=== PATIENT | female | born 1975 | race Two or more races ===

== ENCOUNTER 2021-03-26 14:52 | Outpatient (REF) | payer MEDICAID, SELFPAY ==
--- NOTE | 2021-03-26 | PFT_ITS ---
Forced vital capacity and FEV1 are both moderately decreased. [id number] and MVV are normal. Post bronchodilator therapy, there is no significant change. Total lung capacity and residual volume are moderately decreased. Diffusion capacity is only slightly decreased. CONCLUSION: Restrictive pulmonary disorder, moderately severe. No obstructive airway disorder. No response to bronchodilator therapy. MD TRISHA Faust/DAREN / [id number]
== END 2021-03-26 14:53 | disposition home or self-care (01) ==
LOC: HO.RESP 14:52
PROVIDERS: PCP Internal Medicine; Visit Provider Internal Medicine
DX: R06.00 Dyspnea, unspecified (principal)
CPT/HCPCS: 94060; 94727; 94729

== ENCOUNTER 2021-04-08 13:55 | Outpatient (REF) | payer MEDICAID, SELFPAY ==
[2021-04-08 15:10] LABS: MANUAL DIFF FLAG NO
[2021-04-08 15:18] LABS: Basophils Percent Auto 0.4 % (0-2); Eosinophils Absolute Auto 0.2 X10*3/uL (0.0-0.4); Eosinophils Percent Auto 1.6 % (0-4); Hematocrit 47.3 % (37.0-47.0); Hemoglobin 15.1 g/dl (12.0-16.0); Imm Gran Abs Auto 0.04 X10*3/uL (0.00-0.03); Imm Gran Pct Auto 0.4 % (0.0-0.4); Lymphocytes Absolute Auto 2.1 X10*3/uL (1.2-4.9); Lymphocytes Percent Auto 21.2 % (20-40); Mean Corpuscular HGB Conc 31.9 g/dl (31.0-35.0); Mean Corpuscular Hemoglobin 27.3 pg (27.0-33.0); Mean Corpuscular Volume 85.5 fL (80.0-98.0); Mean Platelet Volume 10.6 fL (9.4-12.3); Monocytes Absolute Auto 0.7 X10*3/uL (0.1-1.2); Monocytes Percent Auto 6.9 % (2-11); Neutrophils Absolute Auto 6.7 x10*3/uL (2.0-8.3); Neutrophils Percent Auto 69.5 % (45-73); Platelet Count 231 X10*3/uL (160-400); Red Blood Count 5.53 X10*6/uL (4.20-5.50); Red Cell Distribution Width 12.1 % (11.0-16.0); White Blood Count 9.7 X10*3/uL (4.8-10.8)
[2021-04-08 15:43] LABS: Anion Gap 11 (12-20); Blood Urea Nitrogen 10 mg/dL (9-16); Carbon Dioxide 25 mmol/L (22-29); Chloride 102 mmol/L (96-108); Estimated Glomerular Filt Rate > 60; Glucose Random 228 mg/dL (60-115); Potassium 3.8 mmol/L (3.3-5.1); Sodium 134 mmol/L (135-145)
[2021-04-08 15:59] LABS: D Dimer High Sensitivity < 150 NG/ML
[2021-04-08 16:04] LABS: Erythrocyte Sedimentation Rate 5 MM/HR (0-20)
[2021-04-10 13:36] LABS: IgA 504 mg/dL (47-310); IgG 1192 mg/dL (600-1640); IgM 163 mg/dL (50-300)
== END 2021-04-08 13:56 | disposition home or self-care (01) ==
LOC: HO.LAB 13:55
PROVIDERS: PCP Internal Medicine; Visit Provider Hospitalist
DX: U09.9 Post COVID-19 condition, unspecified (principal); R09.02 Hypoxemia; R06.00 Dyspnea, unspecified; J98.4 Other disorders of lung
CPT/HCPCS: 36415; 80048; 82784; 85025; 85379; 85652; 99202

== ENCOUNTER → 2021-05-30 14:33 | Outpatient (BNVA) | payer MEDICAID, SELFPAY | PROVIDERS: PCP Internal Medicine; Visit Provider Hospitalist | DX: U09.9 Post COVID-19 condition, unspecified (principal); R06.00 Dyspnea, unspecified; R09.02 Hypoxemia; J98.4 Other disorders of lung | CPT/HCPCS: 99212 ==

== ENCOUNTER 2021-06-12 15:12 | Outpatient (REF) | payer MEDICAID, SELFPAY ==
--- NOTE | ~2021-06-12 | CT_ITS ---
EXAMINATION: CT CHEST WITHOUT CONTRAST CLINICAL INFORMATION: Lung disorders. COMPARISON: None TECHNIQUE: Multidetector volumetric CT imaging of the chest was done. Axial MIP volume rendering provided. Sagittal and coronal reformatted images were obtained. This CT examination was performed using dose optimization techniques as appropriate, variously including the following: *Automated exposure control *Adjustment of mA and/or kV according to patient size (this includes techniques or standardized protocols for targeted exams where dose is matched to indication/reason for exam; i.e. extremities or head) *Use of iterative reconstruction technique DLP: 263 mGy-cm FINDINGS: HAND PAINT MIXER: Unremarkable. LUNGS: The lungs are well inflated with plate-like atelectasis in the lingula and right middle lobe. There are no pulmonary nodules, consolidation, mass or ground-glass density. No abnormal interstitial pattern seen. MEDIASTINUM: The thyroid lobes are symmetric and normal. The central trachea and the bronchi are widely patent. No abnormal-sized mediastinal or hilar lymph nodes seen. There is trace coronary artery calcification. No pericardial effusion seen. The heart size and the great vessels are normal caliber. PLEURA: There is no pleural effusion. No pleural mass or thickening. AXILLA: No lymphadenopathy. UPPER ABDOMEN: Visualized liver, spleen and pancreas appear unremarkable. OSSEOUS STRUCTURES: There is no lytic or sclerotic process seen. CT/CT chest wo con IMPRESSION: Lingular atelectasis in the lingula and right middle lobe. No pulmonary nodules, mass or consolidation. No abnormal lymphadenopathy. Fleischner guidelines were followed.
== END 2021-06-12 15:13 | disposition home or self-care (01) ==
LOC: HO.CT 15:12
PROVIDERS: PCP Internal Medicine; Visit Provider Hospitalist
DX: R06.00 Dyspnea, unspecified (principal); J98.4 Other disorders of lung
CPT/HCPCS: 71250

== ENCOUNTER 2021-06-19 14:00 | Outpatient (REF) | payer MEDICAID, SELFPAY ==
--- NOTE | ~2021-06-19 | US_ITS ---
EXAMINATION: US PELVIS CLINICAL INFORMATION: Pelvic and perineal pain. COMPARISON: None TECHNIQUE: Ultrasound of the pelvis is performed using both transabdominal and transvaginal transducers along with Doppler. Transvaginal imaging is performed due to inadequate visualization transabdominally. FINDINGS: The uterus is surgically absent. The ovaries are normal-appearing. The right ovary measures 3.2 x 2.3 x 1.6 cm. The left ovary measures 3.8 x 1.5 x 2 cm. There is no fluid in the pelvis. US/US pelvic and transvaginal IMPRESSION: Post hysterectomy. Normal-appearing ovaries.
== END 2021-06-19 14:01 | disposition home or self-care (01) ==
LOC: HO.HMGCX 14:00
PROVIDERS: Visit Provider Advanced Practice Midwife
DX: R10.2 Pelvic and perineal pain (principal)
CPT/HCPCS: 76830; 76856

== ENCOUNTER → 2021-09-26 15:05 | Outpatient (BNVA) | payer MEDICAID, SELFPAY | PROVIDERS: PCP Internal Medicine; Visit Provider Hospitalist | DX: J98.4 Other disorders of lung (principal); R06.00 Dyspnea, unspecified; U09.9 Post COVID-19 condition, unspecified; Z79.899 Other long term (current) drug therapy | CPT/HCPCS: 99212 ==

== ENCOUNTER 2022-06-18 12:07 | Outpatient (REF) | payer MEDICAID, SELFPAY ==
--- NOTE | 2022-06-18 10:15 | EMG_ITS ---
Please see scanned EMG / Nerve Conduction Report. MTDD
== END 2022-06-18 12:08 | disposition home or self-care (01) ==
LOC: HO.NEURO 12:07
PROVIDERS: PCP Internal Medicine; Visit Provider Internal Medicine
DX: M25.521 Pain in right elbow (principal)
CPT/HCPCS: 95885; 95910

== ENCOUNTER 2022-07-11 12:56 | Outpatient (REF) | payer MEDICAID, SELFPAY ==
--- NOTE | 2022-07-11 16:04 | PFT_ITS ---
FLOWS: 1. FEV1 68% of predicted at 1.93 L. 2. FVC 61% of predicted at 2.15 L. 3. FEV1 to FVC ratio of 0.90. 4. No bronchodilator response. LUNG VOLUMES: 1. Total lung capacity 68% of predicted at 3.48 L. 2. Residual volume 69% of predicted at 1.23 L. 3. Slow vital capacity 68% of predicted at 2.26 L. 4. Expiratory reserve volume 7% of predicted at 0.08 L. 5. Diffusion capacity is normal. IMPRESSION: Moderate restrictive ventilatory defect with no bronchodilator response. Decreased expiratory reserve volume suggests extrathoracic restriction likely secondary to abdominal obesity. Mick Ferrari MD AP/MODL / [id number]
== END 2022-07-11 12:57 | disposition home or self-care (01) ==
LOC: HO.RESP 12:56
PROVIDERS: PCP Internal Medicine; Visit Provider Hospitalist
DX: J98.4 Other disorders of lung (principal)
CPT/HCPCS: 94060; 94727; 94729

== ENCOUNTER 2022-08-11 14:40 | Outpatient (REF) | payer MEDICAID, SELFPAY ==
--- NOTE | ~2022-08-11 | MM_ITS ---
EXAMINATION: MM SCREENING DIGITAL BREAST TOMOSYNTHESIS, BILATERAL CLINICAL INFORMATION: Screening. Asymptomatic. The lifetime risk of breast cancer based on the Tyrer-Cuzick Model is 7.6%. COMPARISON: Mammography: May 29, 2018 and studies dating back to May 19, 2015 TECHNIQUE: Digital breast tomosynthesis is performed in both the craniocaudal and mediolateral oblique views along with computer-aided detection (CAD). Synthesized 2D images are generated from the tomosynthesis. FINDINGS: There are scattered areas of fibroglandular density (ACR BI-RADS breast composition Category b). There are no significant masses, abnormal calcifications, or other abnormalities. MM/MM tomosynthesis screening BI IMPRESSION: No significant changes from prior exam. ASSESSMENT: BI-RADS 1: Negative RECOMMENDATION: Routine annual mammography screening. This patient's information was entered into a reminder system with a target due date for their next mammogram.
== END 2022-08-11 14:41 | disposition home or self-care (01) ==
LOC: HO.MAMMO 14:40
PROVIDERS: PCP Internal Medicine; Visit Provider Advanced Practice Midwife
DX: Z12.31 Encounter for screening mammogram for malignant neoplasm of breast (principal)
CPT/HCPCS: 77063; 77067

== ENCOUNTER 2022-09-05 14:16 | Outpatient (REF) | payer MEDICAID, SELFPAY ==
--- NOTE | ~2022-09-05 | XR_ITS ---
EXAMINATION: XR CHEST CLINICAL INFORMATION: Other disorder of lung COMPARISON: Previous chest CT May 2021 TECHNIQUE: 2 views of the chest were obtained. FINDINGS: The cardiac and mediastinal contours are normal. The lungs are clear. No pleural effusion or pneumothorax. Bony structures are unremarkable. XR/XR chest 2V IMPRESSION: Unremarkable examination.
[2022-09-05 15:08] LABS: MANUAL DIFF FLAG NO
[2022-09-05 15:59] LABS: Basophils Percent Auto 0.4 % (0-2); Eosinophils Absolute Auto 0.2 X10*3/uL (0.0-0.4); Eosinophils Percent Auto 3.3 % (0-4); Hemoglobin 13.9 g/dl (12.0-16.0); Imm Gran Abs Auto 0.02 X10*3/uL (0.00-0.03); Imm Gran Pct Auto 0.3 % (0.0-0.4); Lymphocytes Absolute Auto 2.3 X10*3/uL (1.2-4.9); Lymphocytes Percent Auto 34.1 % (20-40); Mean Corpuscular HGB Conc 31.6 g/dl (31.0-35.0); Mean Corpuscular Volume 85.6 fL (80.0-98.0); Mean Platelet Volume 10.3 fL (9.4-12.3); Monocytes Absolute Auto 0.7 X10*3/uL (0.1-1.2); Monocytes Percent Auto 9.7 % (2-11); Neutrophils Absolute Auto 3.5 x10*3/uL (2.0-8.3); Neutrophils Percent Auto 52.2 % (45-73); Platelet Count 296 X10*3/uL (160-400); Red Blood Count 5.14 X10*6/uL (4.20-5.50); Red Cell Distribution Width 12.5 % (11.0-16.0); White Blood Count 6.7 X10*3/uL (4.8-10.8)
[2022-09-09 20:54] LABS: Immunoglobulin E 382 kU/L (<OR=114)
[2022-09-10 14:48] LABS: Anti Nuclear Antibody Screen NEGATIVE (NEGATIVE)
[2022-09-11 12:13] LABS: Cyclic Citrullinated Peptide <16 UNITS
[2022-09-11 15:42] LABS: Angiotensin Converting Enzyme 27.1 U/L (9-67)
[2022-09-15 14:38] LABS: Asperg fumigatus Precip Abs NEGATIVE (NEGATIVE); Micropoly faeni Abs NEGATIVE (NEGATIVE); Pigeon serum Abs NEGATIVE (NEGATIVE); Saccharo pora viridis Abs NEGATIVE (NEGATIVE); Thermo candidus Abs NEGATIVE (NEGATIVE); Thermoa vulgaris #1 NEGATIVE (NEGATIVE)
== END 2022-09-05 14:17 | disposition home or self-care (01) ==
LOC: HO.XRAY 14:16
PROVIDERS: PCP Internal Medicine; Visit Provider Hospitalist
DX: J98.4 Other disorders of lung (principal); R91.8 Other nonspecific abnormal finding of lung field; J45.40 Moderate persistent asthma, uncomplicated; R06.00 Dyspnea, unspecified; U09.9 Post COVID-19 condition, unspecified
CPT/HCPCS: 36415; 71046; 82164; 82785; 85025; 86003; 86038; 86200; 86331; 86606; 86609; 99212

== ENCOUNTER 2023-06-18 12:58 | Outpatient (AMB) | payer BC, SELFPAY ==
[2023-06-18 13:08] VITALS: PULSE 77; O2SAT 97; BMI 34.3
--- NOTE | 2023-06-18 13:08 | A.OFFVIS_ITS ---
Intake Vital Signs 06/18/23 13:08 Height 5 ft 4 in Weight 199 lb 15.348 oz BMI 34.3 Pulse 77 Pulse Source Pulse Oximeter Pulse Oximetry (%) 97 Oxygen Delivery Method Room Air Intake Visit Reasons: Post Covid Lsat Instructor Required: No Allergies Motrin Allergy (Severe, Uncoded 06/18/23 13:09) Rash HPI HPI Comments History of Present Illness Details The patient is a 47-year-old woman previously healthy until back in March 2020 when she developed COVID-19 infection. She was initially evaluated at a local hospital. During that evaluation she was also diagnosed with type 2 diabetes. Patient had significantly elevated blood sugars. This has been a common occurrence of people having worsening of hyperglycemia due to the COVID-19 infection. Ultimately the patient was reluctant to use insulin. She has been following closely with her primary care doctor and currently on me dications. In the meantime for the last year she still has had worsening dyspnea on exertion. She also complains of fatigue. The patient does have a take a nap in the afternoon. But, her worsening symptom is the dyspnea on exertion. She does leave on 2nd floor home. Therefore she needs to go up the stairs and she gets very winded. She does not use any inhalers. At this point she is reluctant to use too much medication. She was referred to undergo pulmonary function studies. Therefore she did undergo them and I did review them with her. It appears that she does have a moderate restrictive ventilatory defect in addition to a diffusion impairment likely due to residual affects of COVID resulting in likely some degree of scarring of her lungs. I did have her undergo blood work including a D-dimer that was negative. Therefore she does not need to undergo a CTA. I will follow up with her x-ray if her x-rays abnormal then will plan to do a CT scan of the chest to further address the degree of interstitial disease caused by COVID that could be resulting in the restrictive lung disease. In addition to that we did speak about her sleep-wake cycle. The patient does work in early shift usually wakes about 330 in the morning initially out to work by 5. She denies any difficulty sleeping denies any snoring or any headaches in the morning. She does feel rested when she wak es up. At this point hold off on doing a sleep study. During the office visit we did do a brief 6 minute walk test. The patient did desaturate to the low 90s although did not get to the point of the need oxygen. Explained to the patient if we were to go upstairs her oxygen numbers may drop further. I did encourage her to get a pulse oximeter in order for her to monitor her oxygen levels. Bas ed on the findings he will be reasonable to do an overnight oximetry. 05/30/2021 the patient is here for a pul monary follow-up visit. The patient continues to have significant dyspnea on exertion. Moderate severity. She gets winded when she is going up a flight of stairs. We did review her pulmonary function studies demonstrating moderate restrictive lung disease. In view of her abnormal PFTs and the nondiagnostic chest x-ray I will request a CT scan of the chest. In the meantime the patient will start Symbicort to try to provide with some respiratory late relief. the patient would benefit from pulmonary rehabilitation as well. Will make arrangements for her to start rehab at this time. 09/26/2021 the patient is here for a pulmonary follow-up visit. Overall she is feeling better. She is using Symbicort but only as needed. She has felt a little better. She is struggling with her weight however to use recently diagnosed with diabetes. She is considering bariatric surgery. I did encourage her not to consider bariatric surgery. She can either consider injectables for diabetes that will help her lose weight or consider medical weight management. At this point the patient should not consider bariatric surgery. Explained to her that although it may help her lose weight there is a lot of nutritional deficiencies that occur with surgery. we did review her overnight oximetry. The patient did excellent without any evidence of any hypoxia. She is sleeping well and does not have an elevated [place] score. The patient is going to start exercising once she completes her transition to a new home and will continue working on her weight management issues. I am hopeful that and 8-12 months we can repeat her pulmonary function study to see her overall improvement. Encourage with her improvement and at this point will follow-up in 8-12 months after her PFTs. also to note we did review her CT scan of the chest personally by me demonstrating some minimal atelectasis otherwise no other significant findings. All these she is also very reassuring the patient is making good recovery after having a significant COVID. 09/05/2022 the patient is here for pulmon elisabeth follow-up visit. She is still having hard time. She does not feel well as significant shortness of breath with activity. Moderate severity. Has not really felt better on the Symbicort like initially she did. We did review her previous pulmonary function studies as well as a recent ones. Still looks like she has a moderate restrictive ventilatory defect. Explained to her that this is likely the cause of some underlying scarring or atelectasis the lungs. Her last CT scan did demonstrate some atelectasis. Will plan to repeat the x-ray at this time. The x-ray is abnormal the consider getting another CT scan. In the meantime will go ahead and request allergy testing to see if we have to optimize her respiratory therapy further. In addition to that will go ahead and switch her from S ymbicort to Trelegy to sleep in provide additional bronchodilator effect. I will defer that she patient feels better with therapy. Because of her restrictive lung disease will go ahead and request blood work to address the question of underlying interstitial lung conditions related to any connective tissue conditions. 06/18/2023 the patient is here for a pulm onary follow-u visit. Overall she is doing well from a respiratory status. She did have to go to the [facility] ER for bronchitis several months ago. She was treated in now. She has been using the Breo and Incruse daily. She also has a rescue inhaler that she uses needed. Twice a week. In the meantime she was in her usual state health until she had an encounter with her pet dog. He got into a fight with another dog and she tried to separate them and she got bitten on her right hand. We are able to clean the area and she will start antibiotics for monitor the area closely. She understands the day had infections can become very serious very quickly. I did request she can call her primary care doctor or go to an urgent care to make sure the areas healing well. 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 Hypoxia COVID-19 Social History (Updated 04/08/21 @ 14:25 by ROCIO Mendoza) Patient Tobacco Use Status: Never used Tobacco Review of Systems Const Denies fatigue and Denies night sweats ENT Denies change in voice, Denies lip swelling, Denies mouth pain, Denies nasal congestion, Denies nasal discharge and Denies tongue swelling Card Denies chest pain, Denies dyspnea and Denies dyspnea on exertion Resp Reports cough, Denies dyspnea and Denies dyspnea on exertion GI Denies abdominal pain Musc Denies no additional complaints Skin/Breast Reports bleeding lesions and Reports wounds Neuro Denies Neuro-related abnormal movements Psych Denies no additional complaints Endo Denies fatigue Oscar/Lymph Denies easy bleeding and Denies lymphadenopathy Aller/Immun Denies lip swelling and Denies tongue swelling Physical Exam Vital Signs: Last Vital Signs Pulse 77 06/18/23 13:08 Pulse Ox 97 06/18/23 13:08 Oxygen Delivery Method Room Air 06/18/23 13:08 BMI result Body Mass Index 34.3 Const General: alert Neck Neck: Yes normal visual inspection, Yes full ROM and Yes no lymphadenopathy Chest Chest palpation & inspection: normal inspection of the chest Resp Effort & Inspection: normal respiratory effort Auscultation: clear to auscultation bilaterally and no crackles Cardio Rate: regular rate Rhythm: regular rhythm Heart sounds: S1 normal heart sound present and S2 normal heart sound present GI Palpation (GI): Soft to palpation and nontender Auscultation: normal bowel sounds Skin General skin exam: rashes and/or lesions noted Wounds: wounds noted (right hand with puncture wound) Assessment & Plan Assessment & Plan (1) Chronic restrictive lung disease: Code(s): J98.4 - Other disorders of lung (2) Dyspnea: Code(s): R06.00 - Dyspnea, unspecified Qualifiers: Dyspnea type: dyspnea on exertion Qualified Code(s): R06.00 - Dyspnea, unspecified (3) Reactive airway disease: Code(s): J45.909 - Unspecified asthma, uncomplicated Qualifiers: Asthma complication type: uncomplicated Asthma persistence: persistent Asthma severity: moderate Qualified Code(s): J45.40 - Moderate persistent asthma, uncomplicated (4) Asthma: Comment: elevated IgE Code(s): J45.909 - Unspecified asthma, uncomplicated Qualifiers: Asthma complication type: uncomplicated Asthma persistence: persistent Asthma severity: moderate Qualified Code(s): J45.40 - Moderate persistent asthma, uncomplicated (5) Dog bite: Code(s): W54.0XXA - Bitten by dog, initial encounter Qualifiers: Encounter type: initial encounter Qualified Code(s): W54.0XXA - Bitten by dog, initial encounter Plan continue Breo and incruse ANSELMO Augmentin x 10 days Needs to call PCP for a check up or urgent care specially if her hand worsens follow-up in 6-8 months Medications: New amoxicillin-pot clavulanate 875-125 mg 1 tab PO BID 10 days 20 tabs 0RF Coding Level of Care Code Est Pt Level 4 (14927) Diagnoses Chronic restrictive lung disease J98.4 Dyspnea on exertion R06.00 Dyspnea type: dyspnea on exertion Moderate persistent reactive airway disease without complication J45.40 Asthma complication type: uncomplicated Asthma persistence: persistent Asthma severity: moderate Moderate persistent asthma without complication J45.40 Asthma complication type: uncomplicated Asthma persistence: persistent Asthma severity: moderate Dog bite, initial encounter W54.0XXA Encounter type: initial encounter Time Spent (min) 18
== END 2023-06-18 13:24 | disposition home or self-care (01) ==
PROVIDERS: PCP Internal Medicine; Visit Provider Hospitalist
DX: J98.4 Other disorders of lung (principal); R06.00 Dyspnea, unspecified; J45.40 Moderate persistent asthma, uncomplicated; W54.0XXA Bitten by dog, initial encounter
CPT/HCPCS: 99214

== ENCOUNTER → 2023-06-18 12:58 | Outpatient (BNVA) | payer SELFPAY | PROVIDERS: PCP Internal Medicine; Visit Provider Hospitalist ==

== ENCOUNTER 2023-06-29 16:12 | Outpatient (REF) | payer BC, SELFPAY ==
[2023-06-30 11:52] LABS: BV Int Neg Control Negative (Negative); BV Int Pos Control Positive (Positive)
== END 2023-06-29 16:13 | disposition home or self-care (01) ==
LOC: HO.HHCLNP 16:12
PROVIDERS: Visit Provider Advanced Practice Midwife
DX: B37.31 Acute candidiasis of vulva and vagina (principal)
CPT/HCPCS: 87480; 87510; 87660

== ENCOUNTER 2023-08-14 12:22 | Outpatient (REF) | payer BC, SELFPAY | END 2023-08-14 12:23 | disposition home or self-care (01) | LOC: HO.MAMMO 12:22 | PROVIDERS: PCP Internal Medicine; Visit Provider Advanced Practice Midwife | DX: Z12.31 Encounter for screening mammogram for malignant neoplasm of breast (principal) | CPT/HCPCS: 77063; 77067 ==

== ENCOUNTER → 2023-08-14 12:30 | Outpatient (BNV) | payer BC, SELFPAY | PROVIDERS: PCP Internal Medicine; Visit Provider Radiology Diagnostic Radiology | DX: Z12.31 Encounter for screening mammogram for malignant neoplasm of breast (principal) | CPT/HCPCS: 77063; 77067 ==

== ENCOUNTER 2023-08-28 09:12 | Outpatient (REF) | payer BC, SELFPAY ==
[2023-08-28 11:54] LABS: Estimated Average Glucose 212 mg/dL
[2023-08-28 12:34] LABS: Creatinine Urine 208.36 mg/dL; Microalbum/Creatinine Ratio Ur 38.8 ug/mg cr (<30)
[2023-08-28 12:38] LABS: Alanine Aminotransferase 36 U/L (0-31); Albumin Level 3.8 g/dL (3.5-5.0); Alkaline Phosphatase 44 U/L (39-117); Anion Gap 13 (12-20); Aspartate Amino Transferase 23 U/L (5-31); Bilirubin Total 0.6 mg/dL (0.0-1.0); Blood Urea Nitrogen 7 mg/dL (9-16); Calcium 9.1 mg/dL (8.4-10.2); Carbon Dioxide 24 mmol/L (22-29); Chloride 105 mmol/L (96-108); Cholesterol 189 mg/dL (<200); Estimated Glomerular Filt Rate > 60; Glucose Random 197 mg/dL (60-115); HDL Cholesterol 53 mg/dL (>40); LDL Cholesterol Calculated 102 mg/dL (<100); Potassium 3.5 mmol/L (3.3-5.1); Sodium 138 mmol/L (135-145); TSH reflex Free T4 1.31 uIU/mL (0.32-4.0); Total Protein 6.7 g/dL (6.5-8.0); Triglycerides 172 mg/dL (<150)
== END 2023-08-28 09:13 | disposition home or self-care (01) ==
LOC: HO.HHCL 09:12
PROVIDERS: Visit Provider Internal Medicine
DX: E11.9 Type 2 diabetes mellitus without complications (principal); E78.2 Mixed hyperlipidemia
CPT/HCPCS: 36415; 80053; 80061; 82043; 82570; 83036; 84443

== ENCOUNTER 2023-11-26 13:45 | Outpatient (REF) | payer BC, SELFPAY ==
[2023-11-26 16:42] LABS: Estimated Average Glucose 180 mg/dL; Hemoglobin A1c % 7.9 % (<6.0)
== END 2023-11-26 13:46 | disposition home or self-care (01) ==
LOC: HO.HHCL 13:45
PROVIDERS: Visit Provider Internal Medicine
DX: E11.9 Type 2 diabetes mellitus without complications (principal)
CPT/HCPCS: 36415; 83036

== ENCOUNTER 2024-01-01 12:56 | Outpatient (AMB) | payer BC, SELFPAY ==
--- NOTE | 2024-01-01 13:00 | MHC.OFFVIS ---
Vital Signs 01/01/24 13:02 Height 5 ft 4 in Weight 202 lb BMI 34.7 BP 124/70 Blood Pressure Location Lt brachial Position Sitting Pulse 70 Pulse Source Pulse Oximeter Pulse Oximetry (%) 99 Oxygen Delivery Method Room Air Intake Visit Reasons: Post Covid Personal Support Worker Required: No Allergies Motrin Allergy (Severe, Uncoded 01/01/24 13:04) Rash HPI Comments Details: The patient is a 48-year-old woman previously healthy until back in March 2020 when she developed COVID-19 infection. She was initially evaluated at a local hospital. During that evaluation she was also diagnosed with type 2 diabetes. Patient had significantly elevated blood sugars. This has been a common occurrence of people having worsening of hyperglycemia due to the COVID-19 infection. Ultimately the patient was reluctant to use insulin. She has been following closely with her primary care doctor and currently on medications. In the meantime for the last year she still has had worsening dyspnea on exertion. She also complains of fatigue. The patient does have a take a nap in the afternoon. But, her worsening symptom is the dyspnea on exertion. She does leave on 2nd floor home. Therefore she needs to go up the stairs and she gets very winded. She does not use any inhalers. At this point she is reluctant to use too much medication. She was referred to undergo pulmonary function studies. Therefore she did undergo them and I did review them with her. It appears that she does have a moderate restrictive ventilatory defect in addition to a diffusion impairment likely due to residual affects of COVID resulting in likely some degree of scarring of her lungs. I did have her undergo blood work including a D-dimer that was negative. Therefore she does not need to undergo a CTA. I will follow up with her x-ray if her x-rays abnormal then will plan to do a CT scan of the chest to further address the degree of interstitial disease caused by COVID that could be resulting in the restrictive lung disease. In addition to that we did speak about her sleep-wake cycle. The patient does work in early shift usually wakes about 330 in the morning initially out to work by 5. She denies any difficulty sleeping denies any snoring or any headaches in the morning. She does feel rested when she wakes up. At this point hold off on doing a sleep study. During the office visit we did do a brief 6 minute walk test. The patient did desaturate to the low 90s although did not get to the point of the need oxygen. Explained to the patient if we were to go upstairs her oxygen numbers may drop further. I did encourage her to get a pulse oximeter in order for her to monitor her oxygen levels. Based on the findings he will be reasonable to do an overnight oximetry. 06/18/2023 the patient is here for a pulmonary follow-u visit. Overall she is doing well from a respiratory status. She did have to go to the [facility] ER for bronchitis several months ago. She was treated in now. She has been using the Breo and Incruse daily. She also has a rescue inhaler that she uses needed. Twice a week. In the meantime she was in her usual state health until she had an encounter with her pet dog. He got into a fight with another dog and she tried to separate them and she got bitten on her right hand. We are able to clean the area and she will start antibiotics for monitor the area closely. She understands the day had infections can become very serious very quickly. I did request she can call her primary care doctor or go to an urgent care to make sure the areas healing well. 01/01/2024 the patient is here for a pulmonary follow-up visit. Overall the patient has been doing better from a respiratory status. She continues use her inhalers with good effect. No issues with requiring prednisone. She also did complete the antibiotics for the dog bite. Seems to be healed well. The patient did undergo a CT scan of the chest which is overall reassuring. She is going to continue working with deep breathing exercises on aerobic capacity. She is concerned about her weight. She will be calling the weight management program. She is considering surgical options including a gastric sleeve. Her BMI is 35. in addition to that she does have daytime drowsiness. She has some snoring and does have cardiovascular risk factors including diabetes. Will plan to requesting home sleep study at this time. There is a positive family history as well. [facility] Medical History (Updated 01/01/24 @ 13:18 by Bhupinder Grijalva MD) Asthma Reactive airway disease Chronic restrictive lung disease Diabetes Dyspnea [id number] syndrome Hypoxia COVID-19 Social History (Updated 04/08/21 @ 14:25 by ROCIO Mendoza) Patient Tobacco Use Status: Never used Tobacco Review of Systems Const Reports daytime sleepiness, Reports difficulty sleeping, Reports fatigue and Denies night sweats ENT Denies change in voice, Denies lip swelling, Denies mouth pain, Denies nasal congestion, Denies nasal discharge and Denies tongue swelling Card Denies chest pain, Denies dyspnea and Denies dyspnea on exertion Resp Reports cough, Denies dyspnea and Denies dyspnea on exertion GI Denies abdominal pain Musc Denies no additional complaints Skin/Breast Reports bleeding lesions and Reports wounds Neuro Denies Neuro-related abnormal movements Psych Denies no additional complaints Endo Reports fatigue Oscar/Lymph Denies easy bleeding and Denies lymphadenopathy Aller/Immun Denies lip swelling and Denies tongue swelling Physical Exam Vital Signs: Last Vital Signs Pulse 70 01/01/24 13:02 BP 124/70 01/01/24 13:02 Pulse Ox 99 01/01/24 13:02 Oxygen Delivery Method Room Air 01/01/24 13:02 BMI result Body Mass Index 34.7 Const General: alert Neck Neck: Yes normal visual inspection, Yes full ROM and Yes no lymphadenopathy Chest Chest palpation & inspection: normal inspection of the chest Resp Effort & Inspection: normal respiratory effort Auscultation: clear to auscultation bilaterally and no crackles Cardio Rate: regular rate Rhythm: regular rhythm Heart sounds: S1 normal heart sound present and S2 normal heart sound present GI Palpation (GI): Soft to palpation and nontender Auscultation: normal bowel sounds Skin General skin exam: rashes and/or lesions noted Wounds: wounds noted (right hand with puncture wound) Assessment & Plan Assessment & Plan (1) Chronic restrictive lung disease: Code(s): J98.4 - Other disorders of lung Category: Medical (2) Dyspnea: Code(s): R06.00 - Dyspnea, unspecified Category: Medical Qualifiers: Dyspnea type: dyspnea on exertion Qualified Code(s): R06.00 - Dyspnea, unspecified (3) Reactive airway disease: Code(s): J45.909 - Unspecified asthma, uncomplicated Category: Medical Qualifiers: Asthma complication type: uncomplicated Asthma persistence: persistent Asthma severity: moderate Qualified Code(s): J45.40 - Moderate persistent asthma, uncomplicated (4) Asthma: Comment: elevated IgE Code(s): J45.909 - Unspecified asthma, uncomplicated Category: Medical Qualifiers: Asthma complication type: uncomplicated Asthma persistence: persistent Asthma severity: moderate Qualified Code(s): J45.40 - Moderate persistent asthma, uncomplicated (5) DARRYL (obstructive sleep apnea): Code(s): G47.33 - Obstructive sleep apnea (adult) (pediatric) Category: Medical Plan continue Breo and incruse ANSELMO weight management home psg follow-up in 12 months Orders: Orders RT home sleep study 01/01/24 G47.33 - Obstructive sleep apnea (adult) (pediatric) Coding Level of Care Code Est Pt Level 4 (94695) Diagnoses Chronic restrictive lung disease J98.4 Dyspnea on exertion R06.00 Dyspnea type: dyspnea on exertion Moderate persistent reactive airway disease without complication J45.40 Asthma complication type: uncomplicated Asthma persistence: persistent Asthma severity: moderate Moderate persistent asthma without complication J45.40 Asthma complication type: uncomplicated Asthma persistence: persistent Asthma severity: moderate DARRYL (obstructive sleep apnea) G47.33 Time Spent (min) 16
[2024-01-01 13:02] VITALS: BP 124/70; PULSE 70; O2SAT 99; BMI 34.7
== END 2024-01-01 13:19 | disposition home or self-care (01) ==
PROVIDERS: PCP Internal Medicine; Visit Provider Hospitalist
DX: J98.4 Other disorders of lung (principal); R06.00 Dyspnea, unspecified; J45.40 Moderate persistent asthma, uncomplicated; G47.33 Obstructive sleep apnea (adult) (pediatric)
CPT/HCPCS: 99214

== ENCOUNTER → 2024-01-01 12:56 | Outpatient (BNVA) | payer BC, SELFPAY | PROVIDERS: PCP Internal Medicine; Visit Provider Hospitalist ==